=== PATIENT | female | born 1965 | race Caucasian/White ===

== ENCOUNTER → 2019-05-01 | Outpatient (CLI) | payer MEDICAID ==
--- NOTE | 2019-05-03 20:52 | MAM ---
EXAM DESCRIPTION: 3D Screening BILATERAL : Digital Mammography. CLINICAL HISTORY: 53 years Female ANNUAL SCREENING . No complaints. No personal history of breast cancer. Mother with breast cancer at age 62. Remote family history of breast cancer. Menarche age 13. Childbirth. Hysterectomy 10 years ago. Currently on HRT. Lifetime risk of developing breast cancer (Tyrer-Cuzick model)(%): 15.3. COMPARISON: Baseline study at this facility. Prior study is not available at this time. TECHNIQUE: Bilateral CC and MLO projection full-field images, digital tomosynthesis mammographic technique. Bilateral digital 2-D full-field MLO images. CAD not available for tomosynthesis or 2-D images. FINDINGS: The breast parenchymal density pattern is: Heterogeneously dense breast tissue, which may obscure small masses. No skin thickening or nipple retraction. Small right axillary lymph nodes. Bilateral coarse calcifications. Focal asymmetry in the upper outer quadrant of the middle third of the right breast at the 10:00 position.. No new focal, stellate mass or density, focal asymmetry , and no suspicious microcalcifications left breast IMPRESSION: BI-RADS CATEGORY: 0 - INCOMPLETE- Need prior mammograms for comparison. FOLLOW-UP: Comparison with prior examination(s) when available. Written communication explaining the results and follow-up will be mailed to the patient and referring care provider. Electronically signed by: Conrad Syed MD 05/03/2019 8:51 PM CDT
== END ==
LOC: MAMMO 09:03
DX: Z12.31 Encounter for screening mammogram for malignant neoplasm of breast (principal)

== ENCOUNTER → 2020-07-03 | Outpatient (CLI) | payer MEDICAID ==
--- NOTE | 2020-07-04 09:45 | CT ---
EXAM DESCRIPTION: Chest w/o Contrast CLINICAL HISTORY: 54 years Female, lung nodules COMPARISON: None. TECHNIQUE: Transaxial images were obtained without intravenous contrast media. Sagittal and coronal reconstruction was performed.This exam was performed according to our departmental dose-optimization program, which includes automated exposure control, adjustment of the mA and/or kV according to patient size and/or use of iterative reconstruction technique. FINDINGS: The thyroid is normal in appearance. No pathologic axillary adenopathy is observed. No hilar or mediastinal adenopathy is seen. No pleural fluid is identified. No adrenal masses are detected. A calcified granulomas are observed observed in the lungs. Minimal bullous changes are observed in the lower lobes and in the lung apices. Minimal parenchymal scarring is also noted in the lung apices.No focal infiltrate is observed. No parenchymal mass or noncalcified nodule is observed. IMPRESSION: Emphysematous changes are observed in both lungs. Numerous calcified granulomas are also observed. No true pulmonary nodules are detected. Electronically signed by: Swapnil Ward MD 07/04/2020 9:44 AM [employer]
== END ==
LOC: CT 10:39
PROVIDERS: ATTEND Internal Medicine
DX: J98.4 Other disorders of lung (principal); J43.9 Emphysema, unspecified